=== PATIENT | male | born 1975 | race Caucasian/White ===

== ENCOUNTER 2017-07-01 10:11 | Emergency (ER) | payer OTHER ==
[~2017-07-01] VITALS: Ht 185.4 cm; Wt 87.0 kg
[2017-07-01 10:13] VITALS: BP 147/102
[2017-07-01] MEDS ORDERED: BACITRACIN ZINC OINT 500U/GM, 0.9 GM ONE (10:45)
[2017-07-01] MEDS ORDERED: L.E.T SOLUTION TP ONE ×2 (10:45→11:00)
[2017-07-01] MEDS ORDERED: CEFAZOLIN 1,000 MG ONE (10:45)
[2017-07-01] MEDS ORDERED: CEFAZOLIN 1,000 MG IM ONE (11:00)
[2017-07-01] MEDS ORDERED: DIPH,PERTUSS(ACELL),TET VAC/PF 0.5 ML IM-VACC ONE ×2 (11:22→12:00)
== END 2017-07-01 11:31 | disposition home or self-care (01) ==
LOC: ED 11:18
DX: S81.831A Puncture wound without foreign body, right lower leg, initial encounter (principal); X58.XXXA Exposure to other specified factors, initial encounter; Y93.01 Activity, walking, marching and hiking; Y92.89 Other specified places as the place of occurrence of the external cause; Y99.8 Other external cause status
CPT/HCPCS: 73590; 90471; 90715; 96372; 99284; J0690

== ENCOUNTER 2018-11-14 08:39 | Emergency (ER) | payer SELFPAY ==
[~2018-11-14] VITALS: Ht 185.4 cm; Wt 78.0 kg
[2018-11-14 08:47] VITALS: BP 159/96
--- NOTE | 2018-11-14 09:22 | NUR ---
Patient/Caregiver given discharge instructions and they have confirmed that they understand the instructions. Patient ambulatory with steady gait.
== END 2018-11-14 09:24 | disposition home or self-care (01) ==
LOC: ED 09:18
DX: K08.89 Other specified disorders of teeth and supporting structures (principal)
CPT/HCPCS: 99283

== ENCOUNTER 2019-01-13 09:14 | Emergency (ER) | payer OTHER ==
[~2019-01-13] VITALS: Ht 177.8 cm; Wt 80.0 kg
[2019-01-13 09:31] VITALS: BP 158/89
[2019-01-13] MEDS ORDERED: KETOROLAC 30 MG/1 ML ONE (09:59)
[2019-01-13] MEDS ORDERED: KETOROLAC 30 MG/1 ML IM ONE (10:00)
--- NOTE | 2019-01-13 10:02 | NUR ---
Medicated as per emar for 3/10 coccyx pain.
--- NOTE | 2019-01-13 10:03 | NUR ---
Pt to radiology
--- NOTE | 2019-01-13 11:14 | NUR ---
Coccyx pillow provided. Patient given discharge instructions and they have confirmed that they understand the instructions. Patient ambulatory with steady gait.
== END 2019-01-13 11:16 | disposition home or self-care (01) ==
LOC: ED 11:10
DX: S30.0XXA Contusion of lower back and pelvis, initial encounter (principal); S20.211A Contusion of right front wall of thorax, initial encounter; W18.30XA Fall on same level, unspecified, initial encounter; Y93.89 Activity, other specified; Y92.89 Other specified places as the place of occurrence of the external cause; Y99.8 Other external cause status
CPT/HCPCS: 71046; 72220; 96372; 99283; J1885

== ENCOUNTER 2021-04-18 15:30 | Emergency (ER) | payer SELFPAY ==
--- NOTE | 2021-04-18 15:59 | NUR ---
NO ANSWER FROM LOBBY
--- NOTE | 2021-04-18 16:09 | NUR ---
NO ANSWER FROM LOBBY
--- NOTE | 2021-04-18 16:22 | NUR ---
NO ANSWER FROM LOBBY
--- NOTE | 2021-04-18 16:33 | NUR ---
NO ANSWER FROM LOBBY
== END 2021-04-18 16:45 | disposition left against medical advice (07) ==
LOC: ED 16:15
DX: L02.11 Cutaneous abscess of neck (principal); Z53.21 Procedure and treatment not carried out due to patient leaving prior to being seen by health care provider

== ENCOUNTER 2021-05-29 07:20 | Emergency (ER) | payer SELFPAY ==
[~2021-05-29] VITALS: Ht 185.4 cm; Wt 80.6 kg
[2021-05-29 07:25] VITALS: BP 138/99
--- NOTE | 2021-05-29 07:48 | NUR ---
[facility] AT BEDSIDE FOR EVALUATION.
--- NOTE | 2021-05-29 08:00 | NUR ---
Patient given discharge instructions and prescription and they have confirmed that they understand the instructions. Patient ambulatory with steady gait. NAD, all questions answered appropriately, denies additional needs at this time. No personal belongings left in room after discharge.
== END 2021-05-29 08:01 | disposition home or self-care (01) ==
LOC: ED 07:50
DX: K02.9 Dental caries, unspecified (principal); K08.89 Other specified disorders of teeth and supporting structures; F17.210 Nicotine dependence, cigarettes, uncomplicated
CPT/HCPCS: 99406